=== PATIENT | male | born 1950 | race Caucasian/White ===

== ENCOUNTER → 2018-10-10 | Outpatient (CLI) | payer OTHER ==
[~2018-10-10] MED LIST: CORTISPORIN EY7.5 ML OP
--- NOTE | 2018-10-10 16:23 | 2DMMODE ---
[place] [address] 2 D/M-MODE ECHOCARDIOGRAM Name: JANETTE MENESES Room: [facility]#: [id number] Admission: 10/10/18 Attend Phys: Sarah Perry DO Discharge: Date of : 50 Date of Service: 10/10/18 1623 Report #: [id number] THIS REPORT FOR: //name// APPROVED REPORT Study performed: 10/10/2018 15:22:15 EXAM: Limited 2D and color flow Echocardiogram Patient Location: Out-Patient BSA: 1.89 HR: 53 bpm BP: 122/64 mmHg Other Information Study Quality: Good Indications Murmur 2D Dimensions IVSd: 12.42 (7-11mm) LVOT Diam: 20.50 (18-24mm) LVDd: 51.85 mm PWd: 10.65 (7-11mm) LVDs: 33.79 (25-40mm) Aortic Root: 29.17 mm Left Ventricle The left ventricle is normal size. There is normal LV segmental wall motion. There is normal left ventricular wall thickness. Left ventricular systolic function is normal. The left ventricular ejection fraction is within the normal range. LVEF is 55-60%. Right Ventricle The right ventricle is normal size. The right ventricular systolic function is normal. Atria Left atrium is mildly dilated. The right atrium size is normal. Aortic Valve Mild aortic valve sclerosis. Trace aortic regurgitation. Mitral Valve Moderate mitral regurgitation. There is moderate mitral valve [address] [address] 2 D/M-MODE ECHOCARDIOGRAM Name: ИВАН MENESESHERBERTH Og [id number] Admission: 10/10/18 Attend Phys: Sarah Perry DO Discharge: Date of : 50 Date of Service: 10/10/18 1623 Report #: [id number]. Tricuspid Valve The tricuspid valve is normal in structure. Mild tricuspid regurgitation. Pulmonic Valve The pulmonary valve is normal in structure. There is no pulmonic valvular regurgitation. Pericardium There is no pericardial effusion. <Conclusion> LVEF is 55-60%. Left atrium is mildly dilated. Moderate mitral regurgitation. There is moderate mitral valve prolapse. Mild tricuspid regurgitation. <ELECTRONICALLY SIGNED> By: Fede Maharaj MD, FACC 10/10/181622 22 22 Fede Maharaj MD, FACC /INF
== END ==
LOC: M.CRD 15:00
DX: I08.3 Combined rheumatic disorders of mitral, aortic and tricuspid valves (principal)